=== PATIENT | female | born 1975 | race African-American/Black ===

== ENCOUNTER → 2017-02-14 | Emergency (ER) | payer OTHER ==
[~2017-02-14] VITALS: Ht 170.2 cm; Wt 145.2 kg
[~2017-02-14] MED LIST: CIPRO500 MG PO; FLAGYL500 MG PO; GLUCOPHAGE500 MG PO; LISINOPRIL; PREVACID30 M1 PO; PYRIDIUM200 MG PO; ROBAXIN-750750 MG PO; TRAMADOL HCL50 MG PO; ZESTORETIC 20-1 EACH PO
== END ==
LOC: ED 11:20
DX: S96.911A Strain of unspecified muscle and tendon at ankle and foot level, right foot, initial encounter (principal); E11.9 Type 2 diabetes mellitus without complications; K21.9 Gastro-esophageal reflux disease without esophagitis; Z90.49 Acquired absence of other specified parts of digestive tract; Z88.5 Allergy status to narcotic agent; Z79.899 Other long term (current) drug therapy; W17.2XXA Fall into hole, initial encounter
CPT/HCPCS: 73630; 99283

== ENCOUNTER 2019-03-23 02:26 | Emergency (ER) | payer SELFPAY ==
[~2019-03-23] VITALS: Ht 170.2 cm; Wt 145.2 kg
--- OUTSIDE RECORDS SUMMARY | ~2019-03-23 | XMS | Clinical Summary ---
Demographics + + + | Address | [address] | | | [place] [address] | + + + | Home Phone | | + + + | Preferred Language | Unknown | + + + | Marital Status | Unknown | + + + | Tenriism Affiliation | Unknown | + + + | Race | Unknown | + + + | Ethnic Group | Unknown | + + + Author + + + | Author | [facility] | | | and [place] | + + + | Organization | [facility] | | | and [place] | + + + | Address | Unknown | + + + | Phone | Unavailable | + + + Care Team Providers + +------+ + | Care Bobbin Washer Name | Role | Phone | + +------+ + | Nirav Gonzalez | | + +------+ + Allergies Not on File Medications Not on file Active Problems Not on file Social History + +-------+ +--------+------+ | Tobacco Use | Types | Packs/Day | Years | Date | | | | | Used | | + +-------+ +--------+------+ | Never Assessed | | | | | + +-------+ +--------+------+ + + + | Sex Assigned at | Date Recorded | | | | + + + | Not on file | | + + + + + + + | Job Start Date | Occupation | Industry | + + + + | Not on file | Not on file | Not on file | + + + + + + + + | Travel History | Travel Start | Travel End | + + + + + + | No recent travel history available. | + + Last Filed Vital Signs + + + + | Vital Sign | Reading | Time Taken | + + + + | Blood Pressure | 166/118 | 10/18/20166 PDT | + + + + | Pulse | 79 | 10/18/20166 PDT | + + + + | Temperature | 36.2 C (97.1 F) | 10/18/20161355 PDT | + + + + | Respiratory Rate | 18 | 10/18/20161355 PDT | + + + + | Oxygen Saturation | 96% | 10/18/20161355 PDT | + + + + | Inhaled Oxygen | - | - | | Concentration | | | + + + + | Weight | 154 kg (339 lb 8.2 | 10/18/20161355 PDT | | | oz) | | + + + + | Height | 170 cm (5' 6.93") | 10/18/20161355 PDT | + + + + | Body Mass Index | 53.29 | 10/18/2016 1356 PDT | + + + + Plan of Treatment + + + + + | Health Maintenance | Due Date | Last Done | Comments | + + + + + | Primary Care | | | | | Outreach (Low Risk) | 5 | | | + + + + + | Vaccine: | | | | | Dtap/Tdap/Td (1 - | 4 | | | | Tdap) | | | | + + + + + | Vaccine: Influenza | | | | | (#1) | 9 | | | + + + + + | Cervical Cancer | | 09/23/2014 | | | Screening (Pap) | 0 | | | + + + + + Results Not on filefrom Last 3 Months
--- OUTSIDE RECORDS SUMMARY | ~2019-03-23 | XMS | Clinical Summary ---
Demographics + + + | Address | [address] | | | [place] [address] | + + + | Home Phone | | + + + | Preferred Language | Unknown | + + + | Marital Status | Unknown | + + + | Yazdanism Affiliation | Unknown | + + + | Race | Unknown | + + + | Ethnic Group | Unknown | + + + Author + + + | Author | [facility] | | | and [place] | + + + | Organization | [facility] | | | and [place] | + + + | Address | Unknown | + + + | Phone | Unavailable | + + + Care Team Providers + +------+ + | Care Metal Leaf Layer Name | Role | Phone | + [...]
== END 2019-03-23 03:41 | disposition home or self-care (01) ==
LOC: ED 02:26
DX: J20.9 Acute bronchitis, unspecified (principal); E11.9 Type 2 diabetes mellitus without complications; K21.9 Gastro-esophageal reflux disease without esophagitis; Z88.5 Allergy status to narcotic agent; Z87.891 Personal history of nicotine dependence; Z79.899 Other long term (current) drug therapy
CPT/HCPCS: 99283

== ENCOUNTER 2023-10-12 01:12 | Emergency (ER) | payer OTHER ==
[~2023-10-12] VITALS: Ht 170.2 cm; Wt 144.1 kg
[2023-10-12] MEDS ORDERED: LISINOPRIL10 MG PO (01:25)
[2023-10-12 01:57] LABS: BASOPHILS 0.5 % (0-2); HEMATOCRIT 40.9 % (35.0-50.0); HEMOGLOBIN 13.5 g/dL (12.0-18.0); LYMPHOCYTES 35.4 % (24-44); MCHC 33.1 g/dl (30-36); MCV 81.4 fl (81-99); MONOCYTES 6.1 % (0-12); PLATELET COUNT 254 K/uL (140-440); RBC 5.02 M/ul (4.3-5.7)
[2023-10-12 02:23] LABS: BILIRUBIN, URINE NEGATIVE (negative); BLOOD/HGB, URINE NEGATIVE (Negative); KETONE, URINE TRACE (Negative); LEUK ESTERASE, URINE NEGATIVE (negative); NITRITE, URINE NEGATIVE (negative); PH, URINE 5.5 (5-7)
[2023-10-12 02:24] LABS: ALBUMIN 3.8 g/dL (3.4-5.0); ALBUMIN/GLOBULIN RATIO 1.19 (1.1-2.4); ANION GAP 13.9 (7-21); BILIRUBIN, TOTAL 1.2 ng/dL (0.2-1.0); CALCIUM 9.3 mg/dL (8.5-10.1); CREATININE, SERUM 0.9 mg/dL (0.55-1.02); MAGNESIUM 1.8 mg/dL (1.8-2.4); POTASSIUM 3.9 mmol/L (3.5-5.1)
[2023-10-12 02:59] VITALS: BP 131/88
--- NOTE | 2023-10-12 18:29 | EKG ---
[facility] [address] [place], [place] [address] Signed Normal sinus rhythm Normal ECG No previous ECGs available Confirmed by SHAHAB PAUL MD ([id number]) on 10/12/2023 6:29:49 PM Electronically Signed By: SHAHAB PAUL 10/12/23 1829 PATIENT NAME: BESSIE PAUL Electrocardiogram DATE OF : 73 PHYSICIAN: SHAHAB PAUL REPORT #: [id number] REPORT IS CONFIDENTIAL AND NOT TO BE RELEASED WITHOUT AUTHORIZATION
== END 2023-10-12 03:00 | disposition home or self-care (01) ==
LOC: ED 01:12
PROVIDERS: Internal Medicine
DX: E11.65 Type 2 diabetes mellitus with hyperglycemia (principal); Z87.891 Personal history of nicotine dependence; Z88.5 Allergy status to narcotic agent; Z79.899 Other long term (current) drug therapy
CPT/HCPCS: 36415; 71045; 80053; 81003; 83036; 83735; 84484; 85025; 93005; 93010; 99285-25

== ENCOUNTER 2023-11-23 00:34 | Emergency (ER) | payer OTHER ==
[~2023-11-23] VITALS: Ht 170.2 cm; Wt 136.8 kg
[~2023-11-23 00:34] MED LIST changes: +LISINOPRIL10 MG PO
[2023-11-23 02:24] LABS: BILIRUBIN, URINE NEGATIVE (negative); BLOOD/HGB, URINE NEGATIVE (Negative); KETONE, URINE NEGATIVE (Negative); LEUK ESTERASE, URINE TRACE (negative); NITRITE, URINE NEGATIVE (negative); PH, URINE 5.5 (5-7)
[2023-11-23 02:37] LABS: CRYSTALS, URINE NONE SEEN (0-1+); EPITHELIAL CELLS, URINE SQUAMOUS 2+ /lpf (0-1+); RED BLOOD CELLS, URINE 0-1 /hpf (0-5)
[2023-11-23 02:38] LABS: BACTERIA, URINE RARE /hpf (negative); CASTS, URINE HYALINE 1+ \\lpf; COLLECTION TYPE, URINE CLEAN CATCH; REFLEX CULTURE, URINE No (No)
[2023-11-23 02:45] LABS: BASOPHILS 0.7 % (0-2); EOSINOPHILS 3.9 % (0-6); HEMATOCRIT 40.3 % (35.0-50.0); HEMOGLOBIN 13.5 g/dL (12.0-18.0); MCH 27.2 (27-36); MCHC 33.5 g/dl (30-36); MCV 81.3 fl (81-99); MONOCYTES 6.7 % (0-12); NEUTROPHILS 56.7 % (39-80); PLATELET COUNT 307 K/uL (140-440); RBC 4.95 M/ul (4.3-5.7); RDW 13.3 (10.5-15.0)
[2023-11-23] MEDS ORDERED: METFORMIN HCL500 M1 PO (02:45)
[2023-11-23] MEDS ORDERED: VENTOLIN HFA18 GM INH (02:47)
[2023-11-23 02:58] LABS: ALBUMIN 3.9 g/dL (3.4-5.0); ALBUMIN/GLOBULIN RATIO 1.18 (1.1-2.4); ALCOHOL, MEDICAL <3 ng/dL (<3); ALKALINE PHOSPHATASE 79 U/L (46-116); ALT (SGPT) 28 U/L (14-59); ANION GAP 14.7 (7-21); AST (SGOT) 10 U/L (15-37); BILIRUBIN, TOTAL 1.4 ng/dL (0.2-1.0); BUN/CREATININE RATIO 19.35 (6.0-28.6); CALCIUM 9.4 mg/dL (8.5-10.1); CARBON DIOXIDE 26 mmol/L (21-32); CHLORIDE 101 mmol/L (98-107); CREATININE, SERUM 0.93 mg/dL (0.55-1.02); GLOMERULAR FILTRATION RATE,EST 76 mL/min (>60); POTASSIUM 3.7 mmol/L (3.5-5.1); PROTEIN, TOTAL 7.2 g/dL (6.4-8.2); UREA NITROGEN 18 mg/dL (7-18)
[2023-11-23] MEDS ORDERED: LACTATED RINGER'S 1,000 ML IV ONE (03:00)
[2023-11-23 03:03] LABS: AMPHETAMINES, URINE NEGATIVE (NEGATIVE); BARBITURATES, URINE NEGATIVE (NEGATIVE); BENZODIAZEPINE, URINE NEGATIVE (NEGATIVE); BUPRENORPHINE, URINE NEGATIVE (NEGATIVE); CANNABINOID, URINE NEGATIVE (NEGATIVE); COCAINE, URINE NEGATIVE (NEGATIVE); ECSTASY, URINE NEGATIVE (NEGATIVE); FENTANYL, URINE NEGATIVE (NEGATIVE); METHADONE, URINE NEGATIVE (NEGATIVE); OPIATES, URINE NEGATIVE (NEGATIVE); OXYCODONE, URINE NEGATIVE (NEGATIVE); PHENCYCLIDINE, URINE NEGATIVE (NEGATIVE)
[2023-11-23] MEDS ORDERED: ADULT LOW DOSE81 MG PO (05:01)
[2023-11-23] MEDS ORDERED: ASPIRIN 81 MG CHEW PO ONE (05:15)
[2024-01-02] MEDS ORDERED: JARDIANCE10 MG PO (10:19)
[2024-01-02 10:24] VITALS: BP 120/103
== END 2023-11-23 05:32 | disposition home or self-care (01) ==
LOC: ED 00:34
PROVIDERS: Internal Medicine
DX: G45.9 Transient cerebral ischemic attack, unspecified (principal); R56.9 Unspecified convulsions; E66.01 Morbid (severe) obesity due to excess calories; E11.9 Type 2 diabetes mellitus without complications; Z87.891 Personal history of nicotine dependence; Z88.5 Allergy status to narcotic agent; Z79.82 Long term (current) use of aspirin; Z79.899 Other long term (current) drug therapy
CPT/HCPCS: 36415; 70450; 70496; 70498; 71045; 80053; 80307; 81001; 85025; 96360; 96361; 99285-25; A9270; G0480; J7121

== ENCOUNTER 2024-01-21 17:11 | Emergency (ER) | payer OTHER ==
[~2024-01-21] VITALS: Ht 170.2 cm; Wt 134.0 kg
[~2024-01-21 17:11] MED LIST changes: +ADULT LOW DOSE81 MG PO; +JARDIANCE10 MG PO; +METFORMIN HCL500 M1 PO; +VENTOLIN HFA18 GM INH
[2024-01-21 17:30] LABS: BASOPHILS 0.7 % (0-2); EOSINOPHILS 3.5 % (0-6); HEMATOCRIT 39.2 % (35.0-50.0); LYMPHOCYTES 28.9 % (24-44); MCH 27.3 (27-36); MCHC 33.3 g/dl (30-36); MCV 82.1 fl (81-99); MONOCYTES 5.5 % (0-12); NEUTROPHILS 61.4 % (39-80); PLATELET COUNT 370 K/uL (140-440); RBC 4.77 M/ul (4.3-5.7); RDW 13.1 (10.5-15.0)
[2024-01-21] MEDS ORDERED: ASPIRIN 81 MG CHEW PO ONE (17:30)
[2024-01-21] MEDS ORDERED: CITALOPRAM HBR10 MG PO (17:34)
[2024-01-21] MEDS ORDERED: OZEMPIC0.25 MG/02 SQ (17:35)
[2024-01-21 17:46] LABS: ALBUMIN 4.1 g/dL (3.4-5.0); ALBUMIN/GLOBULIN RATIO 1.21 (1.1-2.4); ANION GAP 14.8 (7-21); BILIRUBIN, TOTAL 1.4 ng/dL (0.2-1.0); BUN/CREATININE RATIO 14.28 (6.0-28.6); CALCIUM 9.5 mg/dL (8.5-10.1); CREATININE, SERUM 1.05 mg/dL (0.55-1.02); MAGNESIUM 1.8 mg/dL (1.8-2.4); POTASSIUM 3.8 mmol/L (3.5-5.1); PROTEIN, TOTAL 7.5 g/dL (6.4-8.2)
[2024-01-21 20:00] VITALS: BP 105/76
--- NOTE | 2024-01-22 21:24 | EKG ---
[facility] [address] [place] [address] Signed Normal sinus rhythm Normal ECG When compared with ECG of 12-OCT-2023 01:32, No significant change was found Confirmed by Eloisa Brown MD ([id number]) on 01/22/2024 9:24:20 PM Electronically Signed By: ELOISA BROWN MD 01/22/242123 PATIENT NAME: BESSIE PAUL Electrocardiogram DATE OF : 73 PHYSICIAN: ELOISA BROWN MD REPORT #: [id number] REPORT IS CONFIDENTIAL AND NOT TO BE RELEASED WITHOUT AUTHORIZATION
== END 2024-01-21 20:00 | disposition home or self-care (01) ==
LOC: ED 17:11
PROVIDERS: Emergency Medicine
DX: R07.89 Other chest pain (principal); F41.9 Anxiety disorder, unspecified; E11.9 Type 2 diabetes mellitus without complications; K21.9 Gastro-esophageal reflux disease without esophagitis; Z87.891 Personal history of nicotine dependence; Z79.82 Long term (current) use of aspirin; Z79.84 Long term (current) use of oral hypoglycemic drugs; Z79.899 Other long term (current) drug therapy; Z88.5 Allergy status to narcotic agent
CPT/HCPCS: 36415; 71045; 80053; 83735; 84484; 85025; 93005; 93010; 99285-25; A9270

== ENCOUNTER 2024-10-10 16:40 | Emergency (ER) | payer OTHER ==
[~2024-10-10] VITALS: Ht 170.2 cm; Wt 104.3 kg
[~2024-10-10 16:40] MED LIST changes: +CITALOPRAM HBR10 MG PO; +OZEMPIC0.25 MG/02 SQ
[2024-10-10] MEDS ORDERED: MOUNJARO12.5 MG/0. (16:52)
[2024-10-10] MEDS ORDERED: LEVETIRACETAM500 MG PO (16:52)
[2024-10-10] MEDS ORDERED: IRBESARTAN-HCT1 EACH PO (16:52)
[2024-10-10 17:10] LABS: BASOPHILS 0.6 % (0-2); EOSINOPHILS 5.3 % (0-6); HEMATOCRIT 39.7 % (35.0-50.0); HEMOGLOBIN 13.6 g/dL (12.0-18.0); LYMPHOCYTES 23.7 % (24-44); MCH 26.6 (27-36); MCHC 34.2 g/dl (30-36); MCV 77.6 fl (81-99); MONOCYTES 6.2 % (0-12); NEUTROPHILS 64.2 % (39-80); PLATELET COUNT 329 K/uL (140-440); RBC 5.11 M/ul (4.3-5.7); RDW 13.5 (10.5-15.0)
[2024-10-10 17:25] LABS: ALBUMIN 3.8 g/dL (3.4-5.0); ALBUMIN/GLOBULIN RATIO 1.12 (1.1-2.4); BILIRUBIN, TOTAL 1.1 mg/dL (0.2-1.0); BUN/CREATININE RATIO 16.45 (6.0-28.6); CALCIUM 8.8 mg/dL (8.5-10.1); CREATININE, SERUM 0.79 mg/dL (0.55-1.02); MAGNESIUM 1.7 mg/dL (1.8-2.4); PROTEIN, TOTAL 7.2 g/dL (6.4-8.2)
[2024-10-10 19:23] VITALS: BP 109/74
[2024-10-12 10:26] LABS: KEPPRA (LEVETIRACETAM) 22 ug/mL (10-40)
== END 2024-10-10 19:25 | disposition home or self-care (01) ==
LOC: ED 16:40
PROVIDERS: Emergency Medicine
DX: R56.9 Unspecified convulsions (principal); E11.9 Type 2 diabetes mellitus without complications; Z88.5 Allergy status to narcotic agent; Z79.82 Long term (current) use of aspirin
CPT/HCPCS: 36415; 80053; 80177; 80307; 83735; 85025; 99284